=== PATIENT | female | born 1980 | race Caucasian/White ===

== ENCOUNTER 2020-01-13 09:31 | Outpatient (CLI) | payer OTHER, SELFPAY ==
--- NOTE | ~2020-01-13 | MR_ITS ---
EXAMINATION: MR lumbar spine wo [facility] EXAM DATE: 01/13/2020 10:58 INDICATION: Low back pain, bilateral leg numbness. TECHNIQUE: Multi-sequential, multiplanar MR images of the lumbar spine were obtained without contrast . Sagittal T1, T2, T2 fat saturation images. Axial T2 weighted images. There is no prior study for comparison. FINDINGS: There is mild disc disease L3-4, mild to moderate at L4-5 with 4 mm retrolisthesis at this level, extrusion and annular fissure. The conus medullaris terminates at the L1 level and has normal signal intensity and morphology. There are no suspicious marrow signal abnormalities. Paraspinal sof t tissue is unremarkable. Level by level evaluation: T12-L1: Disc does not extend beyond the endplate margin. Facet arthropathy: Minimal. Neural foraminal stenosis: No stenosis. Central canal stenosis: No stenosis. L1-L2: Disc does not extend beyond the endplate margin. Facet arthropathy: Minimal. Neural foraminal stenosis: No stenosis. Central canal stenosis: No stenosis. L2-L3: Disc does not extend beyond the endplate margin. Facet arthropathy: Mild. Neural foraminal stenosis: No stenosis. Central canal stenosis: No stenosis. L3-L4: There is a mild diffuse disc bulge. Facet arthropathy: Mild. Neural foraminal stenosis: No stenosis. Central canal stenosis: No stenosis. L4-L5: There is a mild diffuse disc bulge. Facet arthropathy: Mild. Neural foraminal stenosis: Mild to moderate left, mild right. Central canal stenosis: No stenosis. L5-S1: There is a mild to moderate diffuse disc bulge with superimposed small to moderate left centra l extrusion causing mass effect on traversing S1 nerve root in the lateral recess. Facet arthropathy: Mild. Neural foraminal stenosis: Mild to moderate bilateral. Central canal stenosis: No stenosis. IMPRESSION: 1. L5-S1 left central extrusion causing mass effect on traversing S1 nerve root. 2. Otherwise mild spondylosis. Reviewed, dictated and finalized at location A. IMPRESSION: 1. L5-S1 left central extrusion causing mass effect on traversing S1 nerve azra t. 2. Otherwise mild spondylosis.
--- NOTE | ~2020-01-13 | MR_ITS ---
EXAMINATION: MR thoracic spine wo con EXAM DATE: 01/13/2020 10:58 INDICATION: Mid thoracic pain. TECHNIQUE: Multi-sequential, multiplanar MR images of the thoracic spine were obtained without contra st. Sagittal T1, T2, T2 fat saturation, axial T2 weighted images reviewed. There is no prior study for comparison. FINDINGS: There is a 1 cm midthoracic hemangioma. The vertebral body marrow is otherwise normal in si gnal intensity. Minimal lower thoracic Schmorl's nodes, disc disease. Mild diffuse thoracic facet art hropathy. Central canal and neural foramen are widely patent. The spinal cord signal intensity and in trinsic morphology is normal. Paraspinal soft tissue is unremarkable. IMPRESSION: 1. Mild thoracic osteoarthropathy. 2. Minimal lower thoracic disc disease. Reviewed, dictated and finalized at location A.
== END 2020-01-13 09:32 | disposition home or self-care (01) ==
PROVIDERS: PCP Internal Medicine; Visit Provider Internal Medicine
DX: M47.894 Other spondylosis, thoracic region (principal); M51.24 Other intervertebral disc displacement, thoracic region
CPT/HCPCS: 72146; 72148

== ENCOUNTER 2020-04-15 15:00 | Outpatient (RCR) | payer OTHER, SELFPAY ==
--- NOTE | 2020-02-21 11:14 | PTOPEVAL ---
Thank you for referring Emeli Pereira to [facility]. Please review, sign, date and return this plan of care YOBANI. Pt referred to therapy to address back pain with spondylosis. She presents to therapy with trunk and LE weakness, painful and decreased trunk motion, radiating LE symptoms and decreased ailin with daily activities. Recommend additional PT 2x/wk x 6 wk to achieve therapy goals. I agree with and certify that the following plan of care is medically necessary. Referring Physician Date Attending Provider: SARAH Lawton Referring Provider: JackPT Outpatient Evaluation Start: 02/20/20 10:51 Freq: Status: Active Protocol: Document 02/20/20 11:02 GODWIN (Rec: 02/20/20 12:02 [facility] [email or web address]) Therapy Assessment Status Assessment Status Assessment Status Evaluation Outpatient Past Medical History Past Medical History Source of Past Medical History Recalled from Previous Visit, Confirmed with Patient/Family Cardiovascular History Hx Hypertension Yes Gastrointestinal History Hx Other Gastrointestinal Disorders Yes: obesity, BMI>40 Musculoskeletal History Hx Back Pain Yes Hx Degenerative Disk Disease Yes: herniated disc lumbar 3-4 , 4-5 and L5-S1 region Hx Other Musculoskeletal Disorders Yes: left knee pain due to 3 falls Pain History Has Past Pain Affected Your Daily Life Yes Evaluation Information Problem Diagnosis spondylosis without lumbar radiculopathy or myelopathy Onset 19 years Cause unknown Additional Evaluation Detail She has received multiple chiro treatment in the past of her back pain and herniated disc. appt with neurosurgeon on Currently on 10# lifting restriction Subjective Information She received 7 chiro treatment Query Text:As Reported By Patient/ with laser therapy and Family medication. In the past she has had a hernitated disc that limited her ability to sit. States she feel 1 year ago pulling her hamstring. She was receiving chiro to address the pulled muscle. The current herniated disc limits her ability to sleep. She has discomfort when attempting to sleep. States
--- NOTE | 2020-03-20 15:57 | PTOPEVAL ---
Thank you for referring Emeli Pereira to [facility]. Please review, sign, date and return this plan of care YOBANI. Pt has received 9 therapy visits to address her back pain. She is progressing slowly towards therapy goals of improved pain, improved function, and improved muscle strength. She has improved trunk motion with decreased pain. She is performing a regular HEP and walking program. Recommend additional PT 2x/wk x 4 wk. I agree with and certify that the following plan of care is medically necessary. Referring Physician Date Attending Provider: SARAH Lawton Referring Provider: RE-evaluation Summary *PT Outpatient Evaluation Start: 02/20/20 10:51 Freq: Status: Active Protocol: Document 03/20/20 14:32 [facility] (Rec: 03/20/20 15:42 [facility] [email or web address]) Therapy Assessment Status Assessment Status Assessment Status Re-evaluation Evaluation Information Problem Diagnosis spondylosis without lumbar radiculopathy or myelopathy Onset 19 years Cause unknown Additional Evaluation Detail She has received multiple chiro treatment in the past of her back pain and herniated disc. appt with neurosurgeon on Currently on 10# lifting restriction Subjective Information She reports her midback is Query Text:As Reported By Patient/ sore from the last treatment. Family States she cont to have the 1 trigger point of her midback that is very sensitive to any touch. She report her muscles were sore from the last manual treatment. Her pain and tolerance activities vary with her pain and soreness. Improve ailin with prolonged sitting for back pain. Reports the mara quad region has slight improved burning and numbness. Reports more good days vs bad days for her pain. States she cont to have back tightness and soreness with walking. She contributes this to her larger breast. She is walking ~20-30 min. She is currently working the [employer] with prolonged standing and sit
--- NOTE | 2020-04-15 16:06 | PTOPEVAL ---
Thank you for referring Emeli Pereira to [facility]. Please review, sign, date and return this plan of care YOBANI. Pt has received 17 therapy visits since 02/20/20 to address impairments related to her back. She is indep with her HEP. She has reached maximal potential with skilled therapy at this time. Will plan to discharge pt from skilled therapy at this time with therapy goals partially met. I agree with and certify that the following plan of care is medically necessary. Referring Physician Date Attending Provider: SARAH Lawton Re-Evaluation/Discharge *PT Outpatient Evaluation Start: 02/20/20 10:51 Freq: Status: Active Protocol: Document 04/15/20 15:03 GODWIN (Rec: 04/15/20 15:55 [facility] [email or web address]) Therapy Assessment Status Assessment Status Assessment Status Re-evaluation Outpatient Past Medical History Past Medical History Source of Past Medical History Recalled from Previous Visit, Confirmed with Patient/Family Cardiovascular History Hx Hypertension Yes Gastrointestinal History Hx Other Gastrointestinal Disorders Yes: obesity, BMI>40 Musculoskeletal History Hx Back Pain Yes Hx Degenerative Disk Disease Yes: herniated disc lumbar 3-4 , 4-5 and L5-S1 region Hx Other Musculoskeletal Disorders Yes: left knee pain due to 3 falls Pain History Has Past Pain Affected Your Daily Life Yes Evaluation Information Problem Diagnosis spondylosis without lumbar radiculopathy or myelopathy Onset 19 years Cause unknown Additional Evaluation Detail She has received multiple chiro treatment in the past of her back pain and herniated disc. appt with neurosurgeon on Currently on 10# lifting restriction Subjective Information She is still waking up with Query Text:As Reported By Patient/ soreness and stiffness. She Family continues to wake at night due to pain or achiness. 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 She does report increased pain with work related task of standing, sitting or light lifting. She reports 3 bad days a week. She is inconsistently performing her wal
== END 2020-04-16 09:39 | disposition home or self-care (01) ==
LOC: ANHPT 15:00
PROVIDERS: PCP Internal Medicine; Visit Provider Nurse Practitioner
DX: M47.816 Spondylosis without myelopathy or radiculopathy, lumbar region (principal)
CPT/HCPCS: 97014; 97110; 97140; 97162; 97530; G0283

== ENCOUNTER 2021-03-06 11:45 | Outpatient (CLI) | payer OTHER, SELFPAY ==
[2021-03-06 12:45] LABS: Alanine Aminotransferase 13 U/L (4-35); Albumin Level 4.6 g/dL (3.5-5.1); Alkaline Phosphatase 82 U/L (38-126); Anion Gap 5 mmol/L (8-16); Aspartate Amino Transferase 25 U/L (14-36); Bilirubin,Total 1.1 mg/dL (0.2-1.3); Blood Urea Nitrogen 12 mg/dL (7-17); Calcium 10.1 mg/dL (8.4-10.2); Carbon Dioxide 35 mmol/L (22-30); Chloride 97 mmol/L (98-107); Cholesterol 191 mg/dL (0-200); Estimated Glomerular Filt Rate > 60; Glucose 100 mg/dL (65-105); HDL Direct 47 mg/dL; Potassium 3.5 mmol/L (3.4-5.0); Sodium 137 mmol/L (137-145); Triglycerides 111 mg/dL (<150)
[2021-03-06 12:52] LABS: Hemoglobin A1C 5.5 % (<5.7)
[2021-03-06 12:56] LABS: LDL Cholesterol Direct 97 mg/dL
== END 2021-03-06 11:46 | disposition home or self-care (01) ==
PROVIDERS: PCP Internal Medicine; Visit Provider Nurse Practitioner
DX: E03.9 Hypothyroidism, unspecified (principal); Z68.42 Body mass index [BMI] 45.0-49.9, adult; I10 Essential (primary) hypertension; Z79.899 Other long term (current) drug therapy
CPT/HCPCS: 36415; 80053; 80061; 83036; 84443

== ENCOUNTER 2022-01-15 15:21 | Outpatient (CLI) | payer OTHER, SELFPAY ==
--- NOTE | ~2022-01-15 | MR_ITS ---
EXAMINATION: MR lower leg RT wo con DATE: 01/15/2022 16:10 INDICATION: Right lower leg pain. TECHNIQUE: Magnetic resonance imaging (MRI) of the right tibia and fibula was performed without intra venous contrast. Sequences included axial, coronal, and sagittal STIR FSE and T1-weighted FSE. COMPARISON: Right knee radiographs 04/10/2014 FINDINGS: Bone alignment is normal. No fracture. Varicose veins are noted. There is a moderate-sized ruptured Burnett's cyst. There is edema involving the medial aspect of soleus muscle at its distal myot endinous junction with small hematoma, consistent with grade 2 strain. Distal Achilles tendon is nor mal. IMPRESSION: 1. Grade 2 strain of right soleus muscle. 2. Moderate-sized ruptured Burnett's cyst. Reviewed, dictated and finalized at location A.
== END 2022-01-15 15:22 | disposition home or self-care (01) ==
LOC: ANHIMG 15:22
PROVIDERS: PCP Internal Medicine; Visit Provider Internal Medicine
DX: M79.669 Pain in unspecified lower leg (principal); M71.21 Synovial cyst of popliteal space [Baker], right knee
CPT/HCPCS: 73718

== ENCOUNTER 2022-07-10 08:23 | Outpatient (CLI) | payer OTHER, SELFPAY ==
[2022-07-10 08:57] LABS: Alanine Aminotransferase 19 U/L (6-35); Albumin Level 4.2 g/dL (3.5-5.1); Alkaline Phosphatase 64 U/L (38-126); Anion Gap 10 mmol/L (8-16); Aspartate Amino Transferase 22 U/L (14-36); Bilirubin,Total 0.4 mg/dL (0.2-1.3); Blood Urea Nitrogen 16 mg/dL (7-17); Calcium 9.7 mg/dL (8.4-10.2); Carbon Dioxide 30 mmol/L (22-30); Chloride 98 mmol/L (98-107); Cholesterol 183 mg/dL (0-200); Estimated Glomerular Filt Rate > 60; Glucose 106 mg/dL (65-110); HDL Direct 47 mg/dL; Potassium 3.3 mmol/L (3.4-5.0); Sodium 138 mmol/L (137-145); Triglycerides 90 mg/dL (<150)
[2022-07-10 09:07] LABS: LDL Cholesterol Direct 75 mg/dL
[2022-07-10 09:12] LABS: Vitamin D 25 Hydroxy 95.9 ng/mL
== END 2022-07-10 08:24 | disposition home or self-care (01) ==
PROVIDERS: PCP Internal Medicine; Visit Provider Internal Medicine
DX: Z79.899 Other long term (current) drug therapy (principal); I10 Essential (primary) hypertension; E55.9 Vitamin D deficiency, unspecified; Z13.220 Encounter for screening for lipoid disorders
CPT/HCPCS: 36415; 80053; 80061; 82306

== ENCOUNTER 2022-11-03 10:23 | Emergency (ER) | payer OTHER, SELFPAY ==
--- NOTE | ~2022-11-03 | XR_ITS ---
Right ankle Technique: AP, oblique, and lateral views were obtained. Clinical History: Trauma Findings: There is a transverse, traumatic, minimally displaced fracture through the base the medial malleolus. There is an oblique, traumatic, mildly displaced fracture of the lateral malleolus, at and just proximal to the level of the ankle mortise. There is a probable minimally displaced vertically oriented posterior malleolus fracture seen on lateral view. Alignment of the ankle mortise is relativ cuca well preserved. Soft tissue swelling about the ankle noted. Impression: Traumatic, mildly displaced trimalleolar fractures of the ankle, as detailed above. Reviewed, dictated and finalized at location M. TAL [employer] ENGINEER Impression: Traumatic, mildly displaced trimalleolar fractures of the ankle, as detailed ab ove.
--- NOTE | ~2022-11-03 | XR_ITS ---
EXAMINATION: XR ankle LT min 3V DATE: 11/03/2022 12:00 INDICATION: Medial left ankle pain. Fall. TECHNIQUE: 4 views of left ankle were obtained. COMPARISON: None. FINDINGS: Bone alignment is normal. No fracture. There is mild midfoot osteoarthritis. There is a lag screw in fifth metatarsal. There are enthesophytes at the posterior and plantar aspects of calcaneal tuberosity. IMPRESSION: 1. No acute fracture. Reviewed, dictated and finalized at location A. CONDITIONER IMPRESSION: 1. No acute fracture.
--- NOTE | 2022-11-03 11:04 | PC.NURSE ---
arrived with splint in place via EMS and pulse marked; given ice pack shortly after arrival.
[2022-11-03 11:29] VITALS: BP 128/82; PULSE 84; RESP 18; TEMP 36.8; O2SAT 100
--- NOTE | 2022-11-03 11:54 | ED.LOWEXIN ---
HPI - Extremity Injury (Lower) General Chief Complaint: Extremity Injury, Lower Stated Complaint: fall, ankle injury Time Seen by Provider: 11/03/22 11:40 History of Present Illness HPI Narrative: 42 year old female here for evaluation of right ankle pain after a fall. Patient states that she was walking down the stairs when her dogs ran out from under her, causing her to fall down several steps. Patient states that she landed with both of her ankles and eversion. Reports bilateral ankle pain, right over left. No head injury or loss of consciousness. Related Data Allergies Allergy/AdvReac Type Severity Reaction Status Date / Time grass pollen Allergy Unknown unknown Verified 01/29/22 13:29 lisinopril Allergy Unknown Adverse Verified 01/29/22 13:27 Reaction mold Allergy Unknown unknown Verified 01/29/22 13:29 Review of Systems Review of Systems: Gen.: Denies fevers or chills Eyes: Denies eye pain or visual change ENT: Denies congestion Respiratory: Denies shortness of breath or cough CV: Denies chest pain or palpitations GI: Denies abdominal pain nausea, emesis or diarrhea denies burning, urgency, frequency or hematuria Musculoskeletal: Reports bilateral ankle pain Neuro: Denies numbness, tingling, weakness or focal weakness Skin: Denies rash Except as documented, all other systems reviewed and negative PMFSH Past Medical History Medical History Essential hypertension Surgical History Surgical History History of foot surgery (~2010) Hx of cholecystectomy Family History Family History Mother Patient's mother is in good health Father Patient's father is in good health Sibling Patient's sister is in good health Social History Social History Smoking status: Never smoker Second hand tobacco smoke exposure: Yes Alcohol intake: current Alcohol use details: 3 times a year Exam Narrative: APPEARANCE: Well appearing, no pain in distress, well-nourished. Head: Normocephalic and atraumatic. EYES: PERRLA/EOMI, conjunctivae clear NOSE: No nasal drainage EARS: External ear normal in appearance THROAT: Oropharynx is clear. Mucous membranes are moist. NECK: Supple. No adenopathy, no masses. RESPIRATORY: Airway patent, respirations nonlabored. Clear to auscultation bilaterally, no rales, rhonchi, wheezing. CARDIOVASCULAR: Regular rate and rhythm without murmurs, rubs, or gallops. ABDOMINAL: Normoactive bowel sounds. Soft, nontender, nondistended. No rebound tenderness or guarding. MUSCULOSKELETAL: Right ankle is in a posterior splint. Palpable DP pulses. Compartments are soft in both feet. Left ankle has tenderness to the medial malleolus, no obvious deformity. NEURO: Normal speech. No focal neurologic deficits. SKIN: Skin is warm and dry. No rashes. PSYCHIATRIC: Normal affect/mood. Course Vital Signs Vital signs: Vital Signs Temperature 98.2 F 11/03/22 11:29 Pulse Rate 84 11/03/22 11:29 Respiratory Rate 18 11/03/22 11:29 Blood Pressure 128/82 11/03/22 11:29 Pulse Oximetry 100 11/03/22 11:29 Oxygen Delivery Room Air 11/03/22 11:29 Temperature 98.2 F 11/03/22 11:29 Pulse Rate 84 11/03/22 11:29 Respiratory Rate 18 11/03/22 11:29 Blood Pressure 128/82 11/03/22 11:29 Pulse Oximetry 100 11/03/22 11:29 Oxygen Delivery Room Air 11/03/22 11:29 MDM - Extremity Injury (Lower) MDM Narrative Medical decision making narrative: 42-year-old female here for evaluation of bilateral ankle pain after a mechanical fall down several steps earlier today; right ankle with obvious deformity and evidence of slightly displaced trimalleolar fracture on the XR, but good pulses and soft compartments. left ankle with pain at medial malleolus but n
[2022-11-03] MEDS: HYDROcodone/acetaminophen (*CRX) 7.5-325 MG TABLET 1 TAB PO (11:55)
--- NOTE | 2022-11-03 13:55 | PC.NURSE ---
Pt refused crutches. States she has some at home.
== END 2022-11-03 13:55 | disposition home or self-care (01) ==
PROVIDERS: Emergency Provider Physician Assistant; PCP Internal Medicine
DX: S82.851A Displaced trimalleolar fracture of right lower leg, initial encounter for closed fracture (principal); S99.912A Unspecified injury of left ankle, initial encounter; I10 Essential (primary) hypertension; W10.9XXA Fall (on) (from) unspecified stairs and steps, initial encounter
CPT/HCPCS: 27818; 29515; 73610; 99284; A9270

== ENCOUNTER 2022-11-05 02:59 | Day surgery (SDC) | payer OTHER, SELFPAY ==
[2022-11-04 14:34] VITALS: BMI 41.6
--- NOTE | 2022-11-04 14:40 | PC.NURSE ---
Report to the Outpatient Waiting Room, entrance under the green pavilion located off [facility], at time 1230 on date 11/05/22. Planned Procedure Time: 1430. Time changes happen often and if your time is changed the preop area will call you the afternoon before. - You and your visitor will be asked to self-screen and do not enter if you have any COVID symptoms. - Only one visitor is requested with a max of two and NO children visitors are allowed at this time. - The patient visitor may be requested to leave or wait in car when not with patient due to distancing restrictions. - A mask is REQUIRED within the hospital. Patients may have clear liquids (water, carbonated beverages, clear teas, apple juice) until 3 hours prior to surgery with a maximum of 20 ounces. - No food from midnight until time of surgery Take the following medications with a SIP of water the morning of surgery: AMLODIPINE, PAIN PILL IF NEEDED Medications to discontinue per physician: POTASSIUM Date to take last dose: NO MORE UNTIL AFTER SURGERY Please no make-up, nail kyrgyz, hairspray, perfume, deodorant, or body powder the day of surgery. No jewelry (including any body piercings) or valuables the day of surgery, leave them at home. Please take a shower or bath the night before, or the morning of, surgery with an antibacterial soap. Wear comfortable, loose fitting clothing. - Jewelry must be removed prior to entering the operating room. Rings and piercings that are not removed may be cut off. - The hospital will not accept responsibility for valuables. - Please leave all valuables, including medications, at home the day of surgery. If you are going home after surgery, a licensed refuse driver must drive you home. - NO public transportation without another adult if you receive anesthesia. - We recommend that an adult stay with you for 24 hours following discharge. - We also recommend that you do not drive, make important decision, drink alcoholic beverages, or take any drugs that were not prescribed by your health care provider for at least 24 hours after your discharge time. Follow any additional instructions given to you from your surgeon. If you or anyone in your household have experienced Covid symptoms in the past week, please notify your surgeon or the nurse liaison at the phone number below for possible testing. Telephone instructions given to PT - NATALIIA BAL and asked if any additional questions and then verbalized understanding. Patient advised to call surgeon office or pre surgery nurse liaison [phone] if any additional questions.
[2022-11-05] VITALS (8 sets, daily range): BP systolic 106–138; BP diastolic 66–74; PULSE 78–98; RESP 14–20; TEMP 37–37.1; O2SAT 93–99
--- NOTE | ~2022-11-05 | XR_ITS ---
XR surgery orthopedic 11/05/2022 16:39 Indication: Intraoperative fixation of right ankle fracture Procedure: 4 fluoroscopic views of the right ankle. 51 seconds of fluoroscopy. Comparison: 11/03/2022 Findings: Status post internal fixation of fractures of the medial and lateral malleolus. There is a side plate and screws transfixing the distal fibula. There are 2 lag screws transfixing the medial ma lleolus. Mildly displaced posterior malleolar fracture is unchanged. Impression: 1: Status post intraoperative fixation of medial and lateral malleolar fractures, now in anatomic ali gnment post reduction. Reviewed, dictated and finalized at location A. CLE TRIMMER Impression: 1: Status post intraoperative fixation of medial and lateral malleolar fracture s, now in anatomic alignment post reduction.
--- NOTE | 2022-11-05 07:44 | WPDANESEPPF ---
Anes - Initial Pre Proc Eval Procedure: Operation Date: 11/05/22 14:30 Proposed Procedures p Open Reduction Internal Fixation Right Trimalleolar Ankle Fracture - West Horn MD Date/Time: 11/05/22 07:44 Surgeon: West Horn MD Pre Op Diagnosis: right ankle trimalleolar fx Patient Data Age: 42 Gender: F Height: 1.75 m Weight: 128 kg Allergies Allergy/AdvReac Type Severity Reaction Status Date / Time grass pollen Allergy Unknown Other Verified 11/05/22 10:29 lisinopril Allergy Unknown Blurry Verified 11/05/22 10:29 Vision mold Allergy Unknown Other Verified 11/05/22 10:29 ketorolac AdvReac Headache Verified 11/05/22 10:29 Home Medications Medication Instructions Recorded Confirmed Type amlodipine 5 mg tablet See Rx Instructions .Route 11/03/22 11/04/22 Rx .COMPLEX #90 tabs chlorthalidone 50 mg tablet See Rx Instructions .Route 11/03/22 11/04/22 Rx .COMPLEX #90 tabs hydrocodone 5 mg-acetaminophen 325 1 tablet PO Q8H PRN pain #7 tabs 11/03/22 11/04/22 Rx mg tablet metoprolol succinate 25 mg See Rx Instructions .Route 11/03/22 11/04/22 Rx tablet,extended release 24 hr .COMPLEX #90 tabs potassium chloride 20 mEq See Rx Instructions .Route 11/03/22 11/04/22 Rx tablet,extended release .COMPLEX #90 tabs Patient hx anesthesia problems: none Family hx anesthesia problems: none Results Review: All pre-operative results and documents have been reviewed as part of the pre-operative evaluation. [facility] Past Medical History Medical History (Updated 11/05/22 @ 11:05 by Adelina Reece MA) Back pain Chronic narcotic use Chronic pain of left knee Essential hypertension Morbid obesity with BMI of 40.0-44.9, adult Surgical History Surgical History History of foot surgery (~2010) Hx of cholecystectomy Family History Family History Mother Patient's mother is in good health Father Patient's father is in good health Sibling Patient's sister is in good health Social History Social History (Updated 11/05/22 @ 10:30 by Adelina Reece MA) Smoking status: Never smoker Second hand tobacco smoke exposure: Yes Alcohol intake: never Alcohol use details: 3 times a year Substance use: never Substance use type: does not use Lack of Transportation: No Lack of Food: Never True Current Housing: I Have Housing Concerned About Future Housing: No Difficulty Paying Gas/Electric Bills: No Difficulty Paying for Meds: No Currently Unemployed: No Education: Associate Degree Difficulty w/ Childcare or Family Care: No Spiritual care concerns: No Anes - Eval Final PreProcedure Day of Procedure 11/05/22 07:44 Patient weight: morbidly obese Heart: regular rate and rhythm Lungs: clear to auscultation and normal air movement Airway: Mallampati scale class II Neurological: alert and oriented Last oral intake: >/= 8 hours ASA classification: III Emergent: no Anesthetic plan: proceed Anesthesia type and monitoring: general LMA Results Review: All pre-operative results and documents have been reviewed as part of the pre-operative evaluation. Informed Consent: The patient's anesthetic plan and its attendant risks and benefits were discussed with the patient/family/POA. Questions were solicited and answers provided to the satisfaction of the patient/family/POA.
--- NOTE | 2022-11-05 07:46 | WPDANESPNB ---
Anes - Peripheral Nerve Block Date/Time: 11/05/22 07:46 I have discussed with the patient/family/POA the placement of a peripheral nerve block for post-operative pain management, including associated risks, benefits, complications, and side effects. Alternative methods of post-operative analgesia were detailed. Questions were solicited and answers provided to the satisfaction of the patient/family/POA. Time-Out: A pre-procedural Time-Out was completed immediately before starting the procedure and confirmed: Patient Identification, Site, Procedure, Patient Position and the Availability of Requisite Equipment. Clinical Indications: Acute post-operative pain management requested by the operative surgeon. Nerve Block Insertion Note Anes-nerve block: posterior fossa sciatic (20cc) right and adductor canal (10cc) right Patient position: supine Skin prep: chlorhexidine Needle: 22 gauge, stimulating, insulated echogenic needle. Needle length: 80 mm Technique: ultrasound (in plane) Injectate: bupivacaine 0.25% with epi 5 mcg/ml (30cc) Observations: tolerated well Complications: none Procedure start time:: 1445 Procedure end time:: 1450
--- NOTE | 2022-11-05 12:56 | ECG_ITS ---
Measurements Intervals [place] Rate: 88 P: 27 RI: 168 QRS: -19 QRSD: 90 T: 7 QT: 351 QTc: 427 Interpretive Statements SINUS RHYTHM MINIMAL Q WAVES- HIGH LATERAL LEADS BORDERLINE T WAVE ABNORMALITY- INFERIOR LEADS BASELINE ARTIFACT- I, III BORDERLINE ECG NO PREVIOUS ECG AVAILABLE FOR COMPARISON Electronically Signed On 11-05-2022 13:22:11 SHANKER OUT by Brain Blackburn D.O.
[2022-11-05] MEDS: ACETAMINOPHEN 500 MG TABLET 1000 MG PO (14:00)
[2022-11-05 14:24] LABS: Anion Gap 5 mmol/L (8-16); Blood Urea Nitrogen 11 mg/dL (7-17); Calcium 8.6 mg/dL (8.4-10.2); Carbon Dioxide 27 mmol/L (22-30); Chloride 102 mmol/L (98-107); Estimated CRCL calculation 151 ml/min; Estimated Glomerular Filt Rate > 60; Glucose 97 mg/dL (65-110); Potassium 3.6 mmol/L (3.4-5.0); Sodium 134 mmol/L (137-145)
[2022-11-05] MEDS: LACTATED RINGERS 1,000 ML 30 ML IV CONT ×2 (14:38→16:46)
--- NOTE | 2022-11-05 14:44 | WPDHPUPDATE1 ---
History and Physical Update Update Date/Time: 11/05/22 14:44 History and Physical has been reviewed, including an updated exam of the patient. There are NO changes in the patient's condition. Risks, benefits, and alternatives have been discussed and questions answered. Patient agrees to proceed with procedure.
[2022-11-05] MEDS: ceFAZolin 3 GM/D5W 100 ML 100 ML IVPB (14:55)
--- NOTE | 2022-11-05 17:08 | P.OP_ITS ---
Procedure Note - Detailed Date of Procedure 11/05/22 Pre-op Diagnosis Displaced right ankle trimalleolar fracture. Post-op Diagnosis Same Procedure Performed ORIF right ankle displaced trimalleolar fracture with internal fixation of the l ateral and medial malleoli. Surgeon West Horn MD Anesthesia General and Regional Findings Good bone quality. Anatomic reduction. The posterior fragment reduced very nicely. The ankle mortise was intact. Description of Procedure A general anesthetic was administered. The limb was prepped and draped in the usual sterile fashion with a well-padded tourniquet high on the thigh. A bump was placed under the hip. The limb was exsanguinated and the tourniquet inflated to 300 millimeters of mercury during the procedure. A longitudinal incision was created at the distal fibula. Careful dissection was carried down to bone. Perineal nerve branches were protected. The fracture was carefully exposed. Callus and debris was irrigated from the wound. The fracture was brought out to length. Reduction was accomplished with the reduction forceps. An anterior to posterior lag screw was placed. The fixation plate did not require contouring. A compression screw was placed proximally to stabilize the plate. Distal locking screws were placed followed by proximal locking screws. Fluoroscopy was used throughout the procedure to confirm anatomic reduction and appropriate placement of the implants. The medial malleolus was exposed with a longitudinal incision. The fracture was cleared of debris and irrigated. Anatomic reduction was obtained with the reduction tool. Biplanar fluoroscopy was used to assess the fracture reduction and guide placement of the K-wire. Two K-wires were placed parallel across the fracture site. The screw lengths were measured and drilled distally only. The long, partially threaded screws were placed, and the K-wires removed. The tourniquet was released. Meticulous hemostasis was obtained. Wound was closed in layers with 2-0 Vicryl suture 3-0 Monocryl suture and twila. A sterile splint with padding was applied. The patient was extubated and brought to the recovery room in stable condition. There were no complications. Implants Accu Med distal fibula 5 hole contoured anatomic plate. 40 mm partially- threaded cannulated screws for the medial malleolus x2. Estimated Blood Loss 10 Pathology None sent Complications No immediate complications Condition Stable Disposition PACU [facility] Billing Surgery - Charge Forward: Surgery Billing
[2022-11-05] MEDS: fentaNYL CITRATE INJ (*CRX) 100 MCG/2 ML VIAL 25 MCG IV PUSH ×2 (17:10→17:17)
== END 2022-11-05 19:25 | disposition home or self-care (01) ==
PROVIDERS: PCP Internal Medicine; Visit Provider Orthopaedic Surgery
PROC: (CPT 27822; principal; 2022-11-05 14:30)
DX: S82.851A Displaced trimalleolar fracture of right lower leg, initial encounter for closed fracture (principal); G89.18 Other acute postprocedural pain; I10 Essential (primary) hypertension; Z79.891 Long term (current) use of opiate analgesic; E66.01 Morbid (severe) obesity due to excess calories; Z68.41 Body mass index [BMI] 40.0-44.9, adult; W18.39XA Other fall on same level, initial encounter
CPT/HCPCS: 27822; 64445; 64447; 36415; 80048; 93005; 99199; A9270; C1713; J0690; J1100; J2250; J2405; J2704; J3010; J7120

== ENCOUNTER 2023-06-24 11:59 | Outpatient (CLI) | payer OTHER, SELFPAY ==
[2023-06-24 14:51] LABS: Alanine Aminotransferase 16 U/L (6-35); Albumin Level 4.4 g/dL (3.5-5.1); Alkaline Phosphatase 71 U/L (38-126); Anion Gap 7 mmol/L (8-16); Aspartate Amino Transferase 22 U/L (14-36); Bilirubin,Total 0.9 mg/dL (0.2-1.3); Blood Urea Nitrogen 13 mg/dL (7-17); Calcium 9.2 mg/dL (8.4-10.2); Carbon Dioxide 29 mmol/L (22-30); Chloride 101 mmol/L (98-107); Cholesterol 187 mg/dL (0-200); Estimated Glomerular Filt Rate > 60; Glucose 98 mg/dL (65-110); HDL Direct 49 mg/dL; Potassium 3.9 mmol/L (3.4-5.0); Sodium 137 mmol/L (137-145); Triglycerides 92 mg/dL (<150)
[2023-06-24 15:03] LABS: LDL Cholesterol Direct 103 mg/dL
== END 2023-06-24 12:00 | disposition home or self-care (01) ==
PROVIDERS: PCP Nurse Practitioner; Visit Provider Nurse Practitioner
DX: E78.5 Hyperlipidemia, unspecified (principal); Z79.899 Other long term (current) drug therapy
CPT/HCPCS: 36415; 80053; 80061

== ENCOUNTER 2024-01-16 14:09 | Emergency (ER) | payer BC, SELFPAY ==
[2024-01-16 14:25] VITALS: BP 115/69; PULSE 75; RESP 18; TEMP 36.7; O2SAT 100
--- NOTE | 2024-01-16 14:40 | ED.GENADULT ---
HPI - General Adult General Chief complaint: Upper Respiratory Infection Stated complaint: Unknown Time Seen by Provider: 01/16/24 14:40 Source: patient Mode of arrival: ambulatory Limitations: no limitations History of Present Illness HPI narrative: 43-year-old female patient presents to the [facility] with complaints of facial pain and congestion for the past 3 weeks. Patient states she started getting sore throat, runny nose congestion and fevers about 3 weeks ago states she had a leftover Z-Ross and took it thinking that she might of being getting strep. Patient states fevers went away continues to have some congestion and now facial pain for the past week. Patient states she has been taking [id number] Mucinex and Maddi as well as NyQuil. Patient denies any fevers body aches or chills. Denies any chest pain or shortness of breath. Patient states she thinks the coughing is most likely due to his sinus drainage to the back of the throat. Related Data Allergies Allergy/AdvReac Type Severity Reaction Status Date / Time grass pollen Allergy Unknown Other Verified 01/16/24 14:31 lisinopril Allergy Unknown Blurry Verified 01/16/24 14:31 Vision mold Allergy Unknown Other Verified 01/16/24 14:31 ketorolac AdvReac Headache Verified 01/16/24 14:31 Review of Systems Review of Systems: CONSTITUTIONAL: Denies fever, chills, or sweats. EYES: Denies visual changes, redness, or discharge. ENT: Positive rhinorrhea, congestion, deniessore throat, or otalgia. CARDIOVASCULAR: Denies chest pain, palpitations, or edema. RESPIRATORY: positive mild cough denies dyspnea. GASTROINTESTINAL: Denies abdominal pain, nausea, vomiting, or diarrhea. GENITOURINARY: Denies dysuria or hematuria. SKIN: Denies rash or itching. MUSCULOSKELETAL: Denies back pain, joint pain, or myalgia. NEUROLOGIC: positive headache, denies numbness, or weakness. PSYCHIATRIC: Denies anxiety or depression. [facility] Past Medical History Medical History Back pain Chronic narcotic use Chronic pain of left knee Essential hypertension Morbid obesity with BMI of 40.0-44.9, adult Surgical History Surgical History History of ankle surgery (~11/05/22) ORIF right ankle displaced trimalleolar fracture with internal fixation of the lateral and medial malleoli. History of foot surgery (~2010) Hx of cholecystectomy Family History Family History Mother Patient's mother is in good health Father Patient's father is in good health Sibling Patient's sister is in good health Social History Social History Smoking status: Never smoker Second hand tobacco smoke exposure: Yes Alcohol intake: never Alcohol use details: 3 times a year Substance use: never Substance use type: does not use Lack of Transportation: No Lack of Food: Never True Current Housing: I Have Housing Concerned About Future Housing: No Difficulty Paying Gas/Electric Bills: No Difficulty Paying for Meds: No Currently Unemployed: No Education: Associate Degree Difficulty w/ Childcare or Family Care: No Living arrangements: with family Spiritual care concerns: No Comments At the time of my signature I agree with nursing past medical history, surgical, social, and family history. There is no relevant family history pertinent to the presenting complaint. Exam Narrative: GENERAL: Well-appearing, well-nourished, and in no acute distress. HEAD: Normocephalic, atraumatic. EYES: PERRLA and EOMI. ENT: Nares with erythema edema noted bilaterally, no rhinorrhea or epistaxis. Mucous membranes moist. posterior pharynx with no erythema, tonsillar enlargement, exudates or lesions present. Small amount of fluid noted behind the left TM but no erythema no
== END 2024-01-16 14:56 | disposition home or self-care (01) ==
PROVIDERS: Emergency Provider Nurse Practitioner Family
DX: J01.90 Acute sinusitis, unspecified (principal); I10 Essential (primary) hypertension; E66.01 Morbid (severe) obesity due to excess calories; Z68.41 Body mass index [BMI] 40.0-44.9, adult
CPT/HCPCS: 99213; G0463

== ENCOUNTER 2025-01-06 10:01 | Outpatient (CLI) | payer BC, SELFPAY ==
--- OUTSIDE RECORDS SUMMARY | 2025-01-06 10:04 | XMS_ITS | Clinical Summary ---
Author Organization [facility] Address [address] [place] [id number] Care Team Providers Care Chief Of Anesthesiology Name Role Phone Srinivasa Geronimo DO Primary Care Provider [phone] Allergies Active Allergy Reactions Criticality Noted Date Comments Lisinopril Blurred vision 05/02/2020 Medications amLODIPine 5 MG tablet 04/06/2020 Active chlorthalidone 50 MG tablet 04/06/2020 Active potassium chloride CR 20 MEQ Tab CR tablet 04/08/2020 Active traMADol 50 MG tablet 01/04/2020 Active metoprolol succinate ER 25 MG 24 hr tablet Take 25 mg by mouth nightly at bedtime. 04/06/2020 Active Active Problems Problem Noted Date Diagnosed Date Sacroiliitis 05/02/2020 Other intervertebral disc displacement, lumbar r egion 05/02/2020 Class 3 severe obesity with body mass index (BMI) of 40.0 to 44.9 in adult, unspecified obesity type, unspecified whether serious comorbidity present 05/02/2020 Social History Tobacco Use Types Packs/Day Years Used Date Smoking Tobacco: Never Comments Unknown Sex and Gender Information Value Date Recorded Sex Assigned at Not on file Legal Sex Female 1:24 PM CDT Gender Identity Not on file Sexual Orientation Not on file Last Filed Vital Signs Vital Sign Reading Time Taken Comments Blood Pressure 118/80 05/02/2020 1:30 PM CDT Pulse 80 05/02/2020 1:30 PM CDT Temperature - - Respiratory Rate - - Oxygen Saturation 98% 05/02/2020 1:30 PM CDT Inhaled Oxygen Concentration - - Weight 135.6 kg (299 lb) 05/02/2020 1:30 PM CDT Height 175.3 cm (5' 9 ) 05/02/2020 1:30 PM CDT Body Mass Index 44.15 05/02/2020 1:30 PM CDT Plan of Treatment Health Maintenance Due Date Last Done Comments Cervical Cancer Screening Pa p Smear (Age 30 to 64) Every 3 Years 1980 Annual Physical 1983 Hepatitis C 1998 DTaP, Tdap and Td Vaccines ( 1 - Tdap) 1999 Hepatitis B Vaccines (1 of 3 - 19+ 3-dose series) 1999 Cervical Cancer Screening Pa p with HPV Testing (Age 30 to 64) Every 5 Years 2010 Cervical Cancer Screening with HPV 2010 Mammogram Screening 2020 COVID-19 Vaccine (2023-2 5 season) 2024 Influenza Adult (#1) 2024 HPV Vaccines Aged Out No longer eligi ble based on patient's age to complete this topic Meningococcal B Vaccine Aged Out No l onger eligible based on patient's age to complete this topic Meningococcal Vaccine Aged Out No esthela niurka eligible based on patient's age to complete this topic Pneumococcal Vaccine: Pediat rics (0 to 5 Years) and At-Risk Patients (6 to 64 Years) Aged Out No longer eligible b ased on patient's age to complete this topic RSV Immunizations Under 20 Months Aged Out No longer eligible based on patient's age to complete this topic Insurance [facility] [address] Care Teams Chief Of Anesthesiology Relationship Specialty Start Date End Date Srinivasa Geronimo DO [address] [address] PCP - General INTERNAL MEDICINE 05/02/20
--- OUTSIDE RECORDS SUMMARY | 2025-01-06 10:04 | XMS_ITS | Clinical Summary ---
Author Organization [facility] [address] [facility] Address [address] [place] [address] Care Team Providers Care Diamond Driller Name Role Phone Srinivasa Geronimo Primary Care Provider [phone] Allergies Active Allergy Reactions Criticality Noted Date Comments Grass Pollen Other (See Comments) 06/06/2020 Constant runny nose Diarrhea Blurred vision Lisinopril Other (See Comments) 05/02/2020 Blurred vision Mold Other (See Comments) 06/06/2020 Constant runny sinus Diarrhea Blurred vision Medications potassium chloride (K-TAB) 20 mEq Extended Release tablet TK 1 T PO D 05/09/2020 Ac tive amLODIPine (NORVASC) 5 mg tablet TK 1 T PO QD IN THE JAKE 05/09/2020 Active chlorthalidone (HYGROTON) 50 mg tablet TK 1 T PO D 05/10/2020 Active metoprolol succinate (TOPROL XL) 25 mg Extended Release 24 hour tablet TK 1 T PO HS 05/09/2020 Active OLIVE LEAF EXTRACT ORAL Take by mouth. Active MULTIVITAMIN ORAL Take by mouth. Active cholecalciferol, vitamin D3, (VITAMIN D3 ORAL) Take by mouth. Active MELATONIN ORAL Take by mouth 1 time daily as needed. Active acetaminophen (TYLENOL) 500 mg tablet Take 500 mg by mouth every 6 hours as needed. Active Active Problems Problem Noted Date Diagnosed Date Inflammation of both sacroiliac joints 0 Exogenous obesity 06/04/2020 Intervertebral disc disorder with radiculopathy of lumbosacral region 06/04/2020 Family History Medical History Relation Name Comments Hypertension Brother Hypertension Father No Known Problems Mother No Known Problems Sister Relation Name Status Comments Brother Alive Father Alive Mother Alive Sister Alive Social History Tobacco Use Types Packs/Day Years Used Date Smoking Tobacco: Never Alcohol Use Standard Drinks/Week Comments Yes 0 (1 standard drink = 0.6 oz pur e alcohol) rare Comments Unknown Sex and Gender Information Value Date Recorded Sex Assigned at Not on file Legal Sex Female 3:37 PM CDT Gender Identity Not on file Sexual Orientation Not on file Occupation Industry Job Start Date Job End Date Not on file Not on file Not on file Not on file Last Filed Vital Signs Vital Sign Reading Time Taken Comments Blood Pressure - - Pulse - - Temperature - - Respiratory Rate - - Oxygen Saturation - - Inhaled Oxygen Concentration - - Weight - - Height 175.3 cm (5' 9 ) 06/06/2020 9:07 AM CDT Body Mass Index - - Plan of Treatment Health Maintenance Due Date Last Done Comments DTAP/TDAP/TD VACCINES (1 - Tdap) 1999 HEPATITIS B VACCINES (1 of 3 - 19+ 3-dose series) 1999 CERVICAL CANCER SCREENING 2010 BREAST CANCER SCREENING 2020 INFLUENZA VACCINE (#1) 2024 HPV VACCINES Aged Out No longer eligi ble based on patient's age to complete this topic PNEUMOCOCCAL VACCINE 0-49 YEARS Aged Out No longer eligible based on patient's age to complete this topic Insurance [employer] PPO [id number] Care Teams Diamond Driller Relationship Specialty Start Date End Date Srinivasa Geronimo DO [address] [facility] [address] [facility] [address] [place] [id number] PCP - General Internal Medicine 05/28/20
[2025-01-06 10:38] LABS: Alanine Aminotransferase 19 U/L (6-35); Albumin Level 4.2 g/dL (3.5-5.1); Alkaline Phosphatase 67 U/L (38-126); Anion Gap 7 mmol/L (4-12); Aspartate Amino Transferase 20 U/L (14-36); Bilirubin,Total 0.7 mg/dL (0.2-1.3); Blood Urea Nitrogen 16 mg/dL (7-17); Calcium 9.2 mg/dL (8.4-10.2); Carbon Dioxide 30 mmol/L (22-30); Chloride 102 mmol/L (98-107); Cholesterol 172 mg/dL (0-200); Estimated Glomerular Filt Rate > 60; Glucose 96 mg/dL (65-110); HDL Direct 54 mg/dL; Potassium 4.1 mmol/L (3.4-5.0); Sodium 139 mmol/L (137-145); Triglycerides 67 mg/dL (<150)
[2025-01-06 10:49] LABS: LDL Cholesterol Direct 82 mg/dL
== END 2025-01-06 10:02 | disposition home or self-care (01) ==
LOC: ANHLAB 10:02
PROVIDERS: PCP Internal Medicine; Visit Provider Internal Medicine
DX: Z13.220 Encounter for screening for lipoid disorders (principal); I10 Essential (primary) hypertension; Z13.29 Encounter for screening for other suspected endocrine disorder
CPT/HCPCS: 36415; 80053; 80061; 84443

== ENCOUNTER 2025-06-22 12:55 | Outpatient (CLI) | payer BC, SELFPAY ==
--- NOTE | ~2025-06-22 | MR_ITS ---
EXAMINATION: MR lumbar spine wo con DATE: 06/26/2025 9:13 CDT INDICATION: Radiculopathy, lumbar spine. TECHNIQUE: Magnetic resonance imaging (MRI) of the lumbar spine was performed without intravenous contrast. Sequences included sagittal T2-weighted FSE, sagittal T2-weighted FS FSE, sagittal T1-weighted FSE, and axial T2-weighted FSE. COMPARISON: None FINDINGS: Lumbar vertebral body heights and alignment are within normal limits. No compression fracture in the lumbar spine. The conus medullaris ends at the L1 level. No abnormal signal within the spinal cord. Disc desiccation at the L3-L4, L4-5 and L5-S1 levels. Moderate joint space narrowing at the L5-S1 level. At the L3-4 level, there is a small focal posterior disc protrusion causing mild narrowing of the spinal canal. Hypertrophy of the ligamentum flavum and degenerative changes in the facet joints. Mild narrowing of the spinal canal and mild narrowing of the bilateral neural foramen. At the L4-5 level, there is a small broad-based disc bulge. There are degenerative changes in the facet joints and hypertrophy of the ligamentum flavum causing mild narrowing of the spinal canal. Mild to moderate narrowing of the bilateral neural foramen. At the L5-S1 level, there is a small broad-based disc bulge with hypertrophy of the facet joints. Annular fissure in the intervertebral disc at the L5 level. Mild narrowing of the spinal canal. Moderate narrowing of the right neural foramen and [id number] narrowing of the left neural foramen. IMPRESSION: 1. Mild to moderate discogenic and degenerative change in the mid and lower lumbar spine as detailed above. Reviewed, dictated and finalized at location Q. IMPRESSION: 1. Mild to moderate discogenic and degenerative change in the mid and lower lum bar spine as detailed above.
== END 2025-06-22 12:56 | disposition home or self-care (01) ==
LOC: GOSHIMG 12:56
PROVIDERS: PCP Internal Medicine; Visit Provider Internal Medicine
DX: M54.16 Radiculopathy, lumbar region (principal); M51.369 Other intervertebral disc degeneration, lumbar region without mention of lumbar back pain or lower extremity pain
CPT/HCPCS: 72148